=== PATIENT | male | born 1985 | race Hispanic/Latino ===

== ENCOUNTER 2017-12-19 05:53 | Day surgery (SDC) | payer BC ==
[2017-12-18 11:38] VITALS: BMI 34.2
[2017-12-19] MEDS ORDERED: Bupivacaine HCl 0.5% PF (30 ml) Inj ONE (07:05)
[2017-12-19] MEDS ORDERED: Lidocaine 1% w Epi 1:100,000 Inj ONE (07:05)
[2017-12-19] MEDS ORDERED: EPINEPHrine 1 mg/ml (1:1000) Inj ONE (07:44)
[2017-12-19] MEDS ORDERED: Ropivacaine 0.5% 30ML IV ONE (07:59)
[2017-12-19] MEDS ORDERED: Propofol 10 mg/ml Inj (20 ML) ONE ×2 (08:03→08:46)
[2017-12-19] MEDS ORDERED: Midazolam 2 MG/2 ML VIAL ONE (08:03)
[2017-12-19] MEDS ORDERED: Lidocaine 1% 5ml Abboject IV ONE (08:07)
[2017-12-19] MEDS ORDERED: Lactated Ringer's 1,000 ML IV ONE (08:28)
[2017-12-19] MEDS ORDERED: Dexamethasone 4 mg/1 ml ONE (09:00)
--- NOTE | 2017-12-19 09:10 | PCM.ANESB1 ---
Interscalene Block - Brachial Plexus Date of Procedure: 12/19/17 Anesthesiologist: Ken Pre-Procedure Diagnosis: Internal Derangement Right Shoulder Post-Procedure Diagnosis: Dame Procedure Performed: Interscalene Block of Brachial Plexus Right - Procedure Interscalene Block of Brachial Plexus: This procedure was explained to the patient that it is for post-operative pain management. Consent was obtained after a thorough discussion with the patient regarding the benefits and possible complications of local anesthetic block of the Brachial Plexus at the Interscalene area. The patient was brought to the Operating Room and standard monitors were applied. Time out was held with the circulating nurse to confirm the correct surgery and appropriate block. After applying Oxygen by nasal cannula and administering IV Sedation, the patient's head was gently rotated away from the __right____operative shoulder and the anterior scalene groove was carefully palpated. The ultrasound transducer was then applied to the skin in the transverse plane and the brachial plexus was visualized lateral to the carotid artery and in between the anterior and middle scalene muscles. After identification,the anterior lateral portion of the neck was prepped with Chloraprep and Lidocaine 1% was injected subcutaneously for topical analgesia. At this point, a # 22 gauge Stimuplex 2 inches insulated needle was inserted into the interscalene groove and directed in a caudal and midline direction. The needle was inserted lateral to the ultrasound transducer in-plane towards the brachial plexus in a [id number] direction. Needle advancement was performed carefully under direct ultrasound visualization. Nerve stimulator was used and twitched of the affected extremity including the hand brachialis muscles, biceps and the deltoid was obtained at a current of _0.4____MA. After repeated negative aspiration,__2___cc of_0.5%____,____ropivacaine were injected and this was followed with _28____cc of _0.5____% __ropivacaine___ . Under ultrasound guidance the local anesthetics were observed surrounding the roots of the brachial plexus. The needle was removed intact. The patient had stable vital signs, was conscious and in no apparent distress. The patient tolerated the interscalene block of the bracheal plexus well with stable vital signs and was prepared for subsequent surgery.
[2017-12-19] MEDS ORDERED: Desflurane Inhalation Anesthetic Liq (240 ml) ONE (09:28)
[2017-12-19] MEDS ORDERED: EPINEPHrine 1 mg/ml (1:1000) Inj IV ONE (09:30)
[2017-12-19] MEDS ORDERED: Lidocaine 1% w Epi 1:100,000 Inj INJ ONE (09:30)
[2017-12-19] MEDS ORDERED: Liquid Adhesive TOP ONE (10:34)
--- NOTE | 2017-12-19 10:57 | PCM.SURG1 ---
Surgeon's Initial Post Op Note - Surgeon's Notes Surgeon: Jamal Palma MD Department Clinician: Tuan Isaacs PA-C Type of Anesthesia: General Endo Pre-Operative Diagnosis: Right shoulder SLAP tear Operative Findings: see op report Post-Operative Diagnosis: same as pre-op dx Operation Performed: Right shoulder arthroscopy, SLAP repair, subacromail decompression with acromioplasty, AC resection, mini open subpec biceps tenodesis Specimen/Specimens Removed: none Estimated Blood Loss: EBL {In ML}: 10 Date of Surgery/Procedure: 12/19/17 Time of Surgery/Procedure: 09:00
[2017-12-19] MEDS ORDERED: Oxycodone/Acetaminophen 5/325 mg Tab PO PRN (10:59)
[2017-12-19] MEDS ORDERED: Lactated Ringer's 500 ML IV ONE ×2 (11:00→12:45)
[2017-12-19] MEDS ORDERED: Lactated Ringer's 1,000 ML IV SCH (11:45)
[2017-12-19] MEDS ORDERED: HYDROmorphone 0.5 mg/0.5 ml ISec IVP PRN ×2 (11:45→11:56)
[2017-12-19 12:17] VITALS: RESP 18; O2SAT 99
[2017-12-19 14:01] VITALS: BP 125/78; PULSE 66; TEMP 97.8
--- NOTE | 2017-12-20 00:16 | OP ---
Copied To: Jamal Palma MD Attending MD: Jamal Palma MD PROCEDURE DATE: 12/19/2017 SLOT EDITOR: Tuan Isaacs PA-C. PREOPERATIVE DIAGNOSES: 1. Right shoulder superior labrum anterior to posterior tear. 2. Posterior labral tear. 3. Impingement. 4. Synovitis. POSTOPERATIVE DIAGNOSES: 1. Right shoulder posterior superior labral tear. 2. Type II superior labrum anterior to posterior tear. 3. Biceps tendon tear. 4. Anterior labral tear. 5. Partial rotator cuff tear. 6. Impingement. 7. Bursitis. 8. Acromioclavicular joint arthritis. PROCEDURES: 1. Right shoulder arthroscopy, posterior superior labral repair. 2. Extensive debridement. 3. Mini open subpectoral biceps tenodesis. 4. Distal clavicle excision. 5. Subacromial decompression with acromioplasty. EBL: 20 mL. SPECIMENS: None. CLOSURE: Primary. FLUIDS: See anesthesia sheet. ANTIBIOTICS: See anesthesia sheet. COMPLICATIONS: None. INDICATIONS: After failing a course of nonoperative therapy, the patient elected to undergo the above procedures. In the office the risks and possible complications of the shoulder arthroscopy were discussed in detail with the patient. These risks include, but are not limited to, continued pain, lack of motion, infection, vascular injury, and nerve injury including axillary nerve dysfunction, reflex sympathetic dystrophy, compartment syndrome, limb loss, and . The patient expressed an understanding of the risks and possible benefits of the procedure, and was also made aware of the alternatives to surgery. An informed consent was obtained, and was checked immediately preop. Procedure 1: The patient was correctly identified in the holding area and the right shoulder was marked with the surgeon's initials. The patient was transported to the operating room and placed in the supine position and general anesthesia was obtained. A regional interscalene block was used in the epidural anesthesia forward flexion to 170 degrees, external rotation of 60, abduction 160. Stability examination revealed no instability. Procedure 2: The patient was then placed in a beach chair position utilizing the beach chair positioning device. The patient's head was stabilized and the indicated upper extremity was prepped and draped in the standard surgical fashion. The anatomic structures were outlined with a skin marker, and 1% lidocaine with epinephrine was injected into the posterior, anterior, and lateral portal areas. A #21-gauge spinal needle was placed in the glenohumeral joint from the posterior portal and 10 mL of sterile saline was injected into the glenohumeral joint. Return of fluid indicated correct needle placement into the joint. The needle was then withdrawn and a #11 blade was used to make a 1-cm incision at the posterior portal site. Next, the arthroscopic blunt trocar was inserted into the glenohumeral joint. A #21-gauge spinal needle was placed through the anterior rotator interval, and the anterior portal was made with a #11 blade after the spinal needle was withdrawn. A 7-mm cannula was then inserted after the skin incision was made and the arthroscopic probe was then used to examine the internal structures of the glenohumeral joint. With the shoulder in abducted and externally rotated position, the articular surface of the rotator cuff was visualized. The arthroscope and probe were then switched from posterior to anterior. The posterior labrum, posterior capsule, and biceps anchor reflection was then inspected with the arthroscope in the anterior portal position. Examination of the glenohumeral joint revealed: 1. Posterior superior labral tear. 2. Anterolabral tear. 3. Type II SLAP tear. 4. Biceps tendon tear. 5. Partial supraspinatus tear. 6. Extensive labral debridement statement. 7. Ascites of the anterior labrum. 8. Controlled mini-open and subpectoral biceps tenodesis statement. 9. Rotator cuff debridement statement. 10. After the patient's biceps tendon was released, the superior and posterior superior labrum was stabilized using Arthrex 3.0 PushLock sutures. Labral tape was passed around the torn labrum using a 90 degree lasso and the labrum was secured using PushLock suture anchor after the fixation. Probe was used to confirm the fixation which was found to be stable. Using the probe, the labrum was circumferentially assessed for tear. Tears were note at anterior and posterior superior portion. Using the 4.0 motorized shaver and radiofrequency probe, the torn edges of the labrum were debrided until stable rim, preventing any further propagation. The biceps pathology was addressed with biceps tenodesis. Upon careful arthroscopic evaluation of biceps tendon and its anchor site at the labrum, it was noted to be highly frayed and tears not amenable to repair. Biceps tenotomy was performed using the arthroscopic scissors. Afterwards, a small 2-cm incision was marked within the axillary fold and injected with 2 mL of 1% lidocaine with epinephrine. Skin incision was made using a 15 blade. Deeper dissection was carried out with scissors, and interval between pectoralis major tendon and coracobrachialis. Biceps tendon was identified sitting within the biceps groove. It was removed from the groove and found to be erythematous with intersubstance fraying and tearing. Torn edges of the tendon were incised using 15 blade and a 2.0 FiberLoop was used to whip stitch the tendon. The elbow was taken through flexion and extension to identify the appropriate site of tenodesis within the bicipital groove with proper tensioning of muscle belly. For tenodesis, we used the Arthrex bicortical button. The free ends of FiberLoop were loaded onto the metal cortical button. The diameter of the tendon was measured using the guide. Using appropriate drill bit, bicortical drill hole was made at the top of bicipital groove. Then, using the appropriate size reamer, as determined after measuring the width of biceps tendon, the near cortex was drilled approximately 1.5 cm in depth. The cortical button was loaded on the handle and passed through the drilled hole, then flipped at the far cortex. The biceps tendon was delivered into the drill hole and was sutured and secured with FiberLoop. Normal saline irrigation was used to remove all the debris and loose bodies. Skin edges were brought closer using 2.0 Vicryl sutures and closed 4.0 nylon sutures. Rotator cuff debridement statement. After patient's biceps tendon was released, the superior and posterior superior labrum was stabilized using Arthrex 3.0 PushLock sutures Labral Tape was passed around the torn labrum using a 90 degree Lasso and the labrum was secured using PushLock suture anchor after the fixation. Probe was used to confirm the fixation, which was found to be stable. At this point, the arthroscope was withdrawn from the glenohumeral joint and subacromial space was then entered using a blunt trocar. Gentle resistance sweeping against the coracoacromial ligament confirmed proper placement of the sheath and the arthroscope was inserted. A 1-cm incision was made at the inferolateral acromial area to create the lateral portal. Examination of the subacromial space revealed: 1. Bursitis. 2. AC joint arthritis. 3. Impingement. Visualization of the subacromial space was difficult due to excessive bursitis. A bursectomy was performed using a combination of radiofrequency device as well as a 4.0-mm full radius motorized shaver. The soft tissue on the undersurface of the acromion was debrided utilizing the 4.0-mm full radius shaver and the radiofrequency device was used for hemostasis. At this point, the coracoacromial ligament was released with the radiofrequency device and the acromial branch of the thoracoacromial artery was coagulated with the same instrument. Subacromial decompression was performed with a 4.0-mm conical ryan using both the medial portal and the "cutting-block" precision acromioplasty technique from the posterior portal. The undersurface of the acromion was resected to a flat, smooth surface to allow unrestricted excursion of the rotator cuff. After adequate subacromial decompression, attention was then turned to the acromioclavicular joint which was localized using a 21-gauge spinal needle. A single 1-cm incision was placed on the superior aspect of the acromioclavicular joint, and the arthroscope and radiofrequency device were then inserted. Utilizing the radiofrequency device for hemostasis as well as tissue ablation, the perimeter of the distal clavicle was denuded of soft tissue. Care was taken to preserve the superoposterior soft tissue ligamentous attachments to the distal clavicle. A 4.0-mm conical ryan was introduced through the superior portal and 7 mm of distal clavicle was excised. A 1 mm of medial acromion was also resected. All resected bone was planed to a smooth, flat surface, and was checked by arthroscopic visualization from the superior AC joint portal. The subacromial space was then irrigated with sterile saline, and closure was instituted with sutures. A dressing was placed consisting of Xeroform, 4x4's, ABD pads, and tape. The patient was placed in a sling with an ABD pad in the axilla. The patient was then placed in a supine position and extubated without incident. The patient was transferred to the recovery room in stable condition, having tolerated the procedure well. Postoperatively, the patient will be maintained in an abduction sling, also provided with my rehab protocol, defining the restriction and sling use for 6-8 weeks. Followup in 6 weeks days. During this procedure, I was assisted by Tuan Isaacs PA-C, who assisted in positioning the patient on the operating room table as well as transferring the patient from the operating room table to the recovery room stretcher. In addition, Tuan Isaacs PA-C, assisted me during the actual operative procedure by positioning the patient's extremity to allow for easier arthroscopic access to all areas of the joint. The presence of Tuan Isaacs PA-C, as my operative orthotics assistant, was medically necessary to ensure the utmost safety of the patient in the pre, intra-, and postoperative periods. Jamal Palma MD MTDFady
== END 2017-12-19 14:00 | disposition home or self-care (01) ==
LOC: H.OPSURG 05:53
PROVIDERS: ATTEND Orthopaedic Surgery
DX: S43.491A Other sprain of right shoulder joint, initial encounter (principal); X58.XXXA Exposure to other specified factors, initial encounter
CPT/HCPCS: 23430; 29807; C1776; J0171; J0690; J1100; J1170; J2001; J2250; J2405; J2704; J2765; J3010; J7030; J7120